=== PATIENT | female | born 1970 | race Caucasian/White ===

== ENCOUNTER 2020-08-03 23:07 | Emergency (ER) | payer BC, MEDICAID ==
[~2020-08-03] VITALS: Ht 160 cm; Wt 95.0 kg
[2020-08-04] MEDS ORDERED: SODIUM CHLORIDE FLUSH 10ML SYR IVF ONE
[2020-08-04] MEDS ORDERED: FAMOTIDINE 20 MG/2 ML IVPush ONE
[2020-08-04] MEDS ORDERED: ONDANSETRON 2MG/ML, 2ML IVPush ONE
[2020-08-04] MEDS ORDERED: SODIUM CHLORIDE 0.9% 1,000ML IVBOLUS ONE
[2020-08-04] MEDS ORDERED: KETOROLAC 30 MG/1 ML IVPush ONE
[2020-08-04] MEDS ORDERED: ONDANSETRON 2MG/ML, 2ML ONE (00:06)
[2020-08-04] MEDS ORDERED: KETOROLAC 30 MG/1 ML ONE (00:06)
[2020-08-04] MEDS ORDERED: FAMOTIDINE 20 MG/2 ML ONE (00:06)
[2020-08-04 00:08] LABS: BASOPHILS % (AUTO) 0 % (0-1); EOSINOPHILS % (AUTO) 1 % (1-7); LYMPHOCYTES % (AUTO) 2 % (22-44); MEAN CORPUSCULAR HEMOGLOBIN 27.3 pg (27.0-34.8); MEAN CORPUSCULAR HGB CONC 33.4 g/dL (32.4-35.8); MEAN PLATELET VOLUME 8.2 fL (7.4-10.4); MONOCYTES % (AUTO) 3 % (2-9); NEUTROPHILS % (AUTO) 94 % (42-75); PLATELET COUNT 222 x10^3/uL (130-400); RED CELL DISTRIBUTION WIDTH 14.4 % (9.6-15.2)
[2020-08-04 00:21] LABS: ALANINE AMINOTRANSFERASE 27 U/L (12-78); ALBUMIN 3.5 g/dL (3.4-5.0); ANION GAP 6 mmol/L (5-15); CALCIUM 8.7 mg/dL (8.5-10.1); CHLORIDE 107 mmol/L (98-107); CREATININE 0.78 mg/dL (0.55-1.02)
[2020-08-04 00:24] LABS: ALKALINE PHOSPHATASE 106 U/L (45-117); BILIRUBIN,TOTAL 0.5 mg/dL (0.2-1.0); TOTAL PROTEIN 6.6 g/dL (6.4-8.2)
[2020-08-04 00:34] LABS: MD MORPH REVIEW ONLY
[2020-08-04 00:35] LABS: <PLATELET ESTIMATE> ADEQUATE; PMNS WITH VACUOLES 1+
[2020-08-04 00:36] LABS: LARGE PLATELETS 1+
--- NOTE | 2020-08-04 00:45 | NUR ---
PT TO ED FOR N/V, ABD PAIN & H/A. STATES SHE TOOK A NAP THIS AFTERNOON & WOKE UP WITH RASH COVERING ENTIRE BODY. PT DENIES ANY CHANGE IN LOTIONS/SOAPS..ECT. PT RR EVEN NON LABORED. PT C/O OF CHILLS. GIVEN WARM BLANKET. ABD SOFT, NON DISTENDED.
--- NOTE | 2020-08-04 00:58 | NUR ---
RECEIVED REPORT FROM RANDOLPH JENKINS.
[2020-08-04 02:28] VITALS: BP 102/58
--- NOTE | 2020-08-04 02:30 | NUR ---
Patient given discharge instructions and they have confirmed that they understand the instructions. Patient ambulatory with steady gait. No questions at time of discharge.
== END 2020-08-04 02:32 | disposition home or self-care (01) ==
LOC: ED 08-04 01:28
DX: L50.1 Idiopathic urticaria (principal); R11.2 Nausea with vomiting, unspecified; R53.1 Weakness; R10.9 Unspecified abdominal pain; R51.9 Headache, unspecified; M79.10 Myalgia, unspecified site
CPT/HCPCS: 36415; 80053; 83690; 85025; 96361; 96374; 96375; 99284; J1885; J2405; J7030